=== PATIENT | male | born 1990 | race Hispanic/Latino ===

== ENCOUNTER 2019-03-17 14:25 | Inpatient (IN) | payer OTHER ==
[2019-03-17] MEDS ORDERED: AMIDATE IV ONE ×2 (14:45)
[2019-03-17] MEDS ORDERED: CALCIUM CHLORIDE IV ONE ×3 (14:45→15:05)
[2019-03-17] MEDS ORDERED: SUBLIMAZE IV ONE ×2 (14:45)
[2019-03-17] MEDS ORDERED: MAGNESIUM SULFATE 1 GM in NACL 0.9% 50 ML IV ONE (14:45)
[2019-03-17] MEDS ORDERED: SUBLIMAZE ONE (14:45)
[2019-03-17] MEDS ORDERED: ZOFRAN IV ONE (14:45)
[2019-03-17] MEDS ORDERED: NACL 0.9% 500 ML 500 ML IV ONE (14:57)
--- NOTE | 2019-03-17 14:58 | Emergency Department Report ---
ED General Adult HPI - General Chief complaint: Weakness Stated complaint: CHEST PAIN Time Seen by Provider: 03/17/19 14:55 Source: patient, police, EMS ( EMS documentation not available at time of chart dictation . Verbal report received from EMS), RN notes reviewed Mode of arrival: Stretcher Limitations: Physical Limitation - History of Present Illness Initial comments: Assessment is a 28-year-old gentleman who is not known to this provider jessica tran. The patient does not have a local primary care doctor. He does not have any chronic medical conditions that he is aware of. The patient is brought to the hospital by emergency medical services for undifferentiated wide-complex tachycardia. Patient states that he was in his usual state of health earlier on today, playing basketball, when he began to feel sweaty, lightheaded, and weak. Emergency medical services were contacted, and he was found to have a wide complex tachycardia. EMS gave 150 mg of amiodarone 2, adenosine 6 mg, 12 mg, and 600 mL of normal saline. Upon arrival to the emergency room, the patient is in a persistently wide complex tachycardia. He complains of weakness and chest pain, and also is found to be diaphoretic. Emergency cardioversion was recommended with moderate sedation. The patient indicates that he ate about 2 hours prior to arrival. He gave verbal consent for moderate sedation, given emergent nature of procedure. Risks, benefits, alternatives were discussed with the patient. Patient received 5 mg of etomidate, and additional 5 mg of etomidate, and then 50 g of fentanyl. He received synchronized cardioversion at 200 J, with prompt resolution of his wide-complex tachycardia, and prompt resolution of all of his symptoms. The patient is now in a sinus rhythm, and denies all complaints. He is smiling, and indicates that he feels much better. 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 He is currently in [facility], and indicates no recreational drug use. -: Sudden Location: chest Radiation: non-radiation Quality: aching Consistency: constant, now resolved Improves with: other (procedural sedation, and synchronize cardioversion) - Related Data Home Medications Medication Instructions Recorded Confirmed Last Taken No Known Home Medications [No 03/17/19 03/17/19 Unknown Reported Home Medications] Allergies Allergy/AdvReac Type Severity Reaction Status Date / Time No Known Allergies Allergy Verified 03/17/19 15:34 ED Review of Systems ROS: Stated complaint: CHEST PAIN Other details as noted in HPI Constitutional: diaphoresis, malaise Eyes: denies: eye discharge ENT: other (binocular blurry vision) Respiratory: shortness of breath. denies: wheezing Cardiovascular: chest pain, palpitations, syncope (near syncope) Gastrointestinal: nausea, vomiting Musculoskeletal: denies: back pain Skin: denies: lesions Neurological: weakness Psychiatric: anxiety ED Past Medical Hx - Medications Home Medications: Home Medications Medication Instructions Recorded Confirmed Last Taken Type No Known Home Medications [No 03/17/19 03/17/19 Unknown History Reported Home Medications] ED Physical Exam - General Limitations: Physical Limitation, Other (she initially diaphoretic) General appearance: alert, anxious, in distress - Head Head exam: Present: atraumatic, normocephalic - Eye Eye exam: Present: normal appearance, EOMI. Absent: nystagmus - ENT ENT exam: Present: normal exam, normal orophraynx, mucous membranes moist, normal external ear exam - Neck Neck exam: Present: normal inspection, full ROM. Absent: tenderness, meningismus - Respiratory Respiratory exam: Present: normal lung sounds bilaterally. Absent: respiratory distress - Cardiovascular Cardiovascular Exam: Present: tachycardia, other (initially, patient found to be tachycardic. However, after cardioversion, found to be normal sinus, S1, S2, regular rate and rhythm. No murmurs are appreciated.). Absent: diastolic murmur, rubs, gallop - GI/Abdominal GI/Abdominal exam: Present: soft. Absent: distended, tenderness, guarding, rebound, rigid - Rectal Rectal exam: Present: deferred - Extremities Exam Extremities exam: Present: normal inspection, full ROM, other (2+ pulses noted in the bilateral upper, lower extremities. There is no long bone tenderness. Musculoskeletal compartments are soft. The pelvis is stable.). Absent: pedal edema, joint swelling, calf tenderness - Back Exam Back exam: Present: normal inspection. Absent: tenderness, CVA tenderness (R), CVA tenderness (L), paraspinal tenderness, vertebral tenderness - Neurological Exam Neurological exam: Present: alert, oriented X3, other (there is no facial droop. The tongue is midline. Extraocular movements are intact bilaterally. Patient speaking in full complete sentences. Shoulder shrug is intact bilaterally. He aring is grossly intact bilaterally. Visual acuity intact to finger counting and color perception at a close distance. 5/5 strength 4 extremities. Sensation intact to light touch in 4 extremities.) - Psychiatric Psychiatric exam: Present: anxious - Skin Skin exam: Present: warm, dry, intact, normal color. Absent: rash ED Course Vital Signs 03/17/19 03/17/19 03/17/19 14:25 14:27 14:30 Temperature 98.2 F Pulse Rate 245 H 237 H Respiratory 20 19 16 Rate Blood Pressure 139/107 125/85 125/85 Blood Pressure [Left] O2 Sat by Pulse 98 100 96 Oximetry 03/17/19 03/17/19 03/17/19 14:40 14:50 15:00 Temperature Pulse Rate 221 H 77 74 Respiratory 22 19 11 L Rate Blood Pressure 125/85 125/85 176/93 Blood Pressure 176/93 [Left] O2 Sat by Pulse 97 98 96 Oximetry 03/17/19 03/17/19 03/17/19 15:10 15:20 15:29 Temperature Pulse Rate 77 76 Respiratory 23 0 L 16 Rate Blood Pressure 156/96 152/106 Blood Pressure 176/92 [Left] O2 Sat by Pulse 96 98 98 Oximetry 03/17/19 03/17/19 03/17/19 15:30 15:40 15:50 Temperature Pulse Rate 71 75 74 Respiratory 0 L 15 13 Rate Blood Pressure 169/92 164/85 182/95 Blood Pressure [Left] O2 Sat by Pulse 98 97 98 Oximetry 03/17/19 03/17/19 03/17/19 16:00 16:10 16:20 Temperature Pulse Rate 69 70 69 Respiratory 17 18 20 Rate Blood Pressure 182/95 177/93 171/83 Blood Pressure [Left] O2 Sat by Pulse 99 99 100 Oximetry 03/17/19 03/17/19 03/17/19 16:30 16:40 16:50 Temperature Pulse Rate 69 75 71 Respiratory 19 18 16 Rate Blood Pressure 171/105 171/83 158/75 Blood Pressure [Left] O2 Sat by Pulse 98 96 98 Oximetry 03/17/19 03/17/19 03/17/19 17:00 17:10 17:20 Temperature Pulse Rate 69 64 Respiratory 24 22 Rate Blood Pressure 158/88 158/88 216/165 Blood Pressure [Left] O2 Sat by Pulse 98 97 95 Oximetry 03/17/19 03/17/1919 17:30 17:40 17:50 Temperature Pulse Rate 67 61 66 Respiratory 18 20 16 Rate Blood Pressure 178/95 178/95 153/87 Blood Pressure [Left] O2 Sat by Pulse 96 96 96 Oximetry 03/17/19 03/17/19 18:00 18:10 Temperature Pulse Rate 64 64 Respiratory 13 17 Rate Blood Pressure 158/101 158/101 Blood Pressure [Left] O2 Sat by Pulse 96 96 Oximetry - Procedure Description Procedures done: Patient placed on diagnostic cardiac sonographer, and end-tidal capnography. Patient required emergency cardioversion for wide-complex tachycardia with diaphoresis and chest pain. Patient came verbal consent for emergency cardioversion. Risks, benefits and alternatives were discussed. Patient had already failed conservative measures with medical therapy. Patient medicated with etomidate, fentanyl, please see moderate sedation note for further details, received synchronized cardioversion at 200 J, and probably returns to a normal sinus rhythm. The patient endorsed complete resolution of his symptoms, and tolerated the procedure well. - Moderate Sedation Indications: other (moderate sedation for cardioversion) ASA Class: III Mallampati Airway Score: 2 Preparation: diagnostic cardiac sonographer applied, pulse oximeter, capnometry used, supplemental O2 applied Fentanyl: IV Fentanyl Dose: 50 IV Etomidate Dose (mgs): 10 (5 mg, 5 mg) Complications: none Interventions: oxygen applied, airway repositioned, assist by BVM Patient Tolerated Procedure: well Additional Comments: Patient reportedly consumed food 2 hours prior to arrival. Required emergency moderate sedation for cardioversion, for wide-complex tachycardia with concerning symptoms. He has provided oral consent. Risks, benefits, alternatives discussed with patient. Conversation witnessed by multiple nurses, including Rnee Ware ED Medical Decision Making - Lab Data Result diagrams: 03/17/19 Unknown 03/17/19 Unknown Vital Signs 03/17/19 03/17/19 03/17/19 14:25 14:50 15:29 Temperature 98.2 F Pulse Rate 245 H 76 76 Respiratory 20 18 16 Rate Blood Pressure 139/107 Blood Pressure 176/93 176/92 [Left] O2 Sat by Pulse 98 98 98 Oximetry Lab Results 03/17/19 03/17/19 03/17/19 Range/Units Unknown Unknown Unknown WBC 15.2 H (4.5-11.0) K/mm3 RBC 5.63 H (3.65-5.03) M/mm3 Hgb 16.7 H (11.8-15.2) gm/dl Hct 49.4 H (35.5-45.6) % MCV 88 (84-94) fl MCH 30 (28-32) pg MCHC 34 (32-34) % RDW 13.3 (13.2-15.2) % Plt Count 273 (140-440) K/mm3 PT 13.9 (12.2-14.9) Sec. INR 1.10 (0.87-1.13) APTT 26.3 (24.2-36.6) Sec. Sodium 140 (137-145) mmol/L Potassium 4.9 (3.6-5.0) mmol/L Chloride 100.9 (98-107) mmol/L Carbon Dioxide 20 L (22-30) mmol/L Anion Gap 24 mmol/L BUN 15 (9-20) mg/dL Creatinine 1.2 (0.8-1.5) mg/dL Estimated GFR > 60 ml/min BUN/Creatinine Ratio 13 % Glucose 126 H (75-100) mg/dL Calcium 10.1 (8.4-10.2) mg/dL Magnesium (1.7-2.3) mg/dL Total Bilirubin 0.60 (0.1-1.2) mg/dL AST 45 H (5-40) units/L ALT 59 H (7-56) units/L Alkaline Phosphatase 56 (35-129) units/L Total Creatine Kinase (55-170) units/L Total Protein 8.3 H (6.3-8.2) g/dL Albumin 5.0 (3.9-5) g/dL Albumin/Globulin Ratio 1.5 % TSH (0.270-4.200) mlU/mL Salicylates (2.8-20.0) mg/dL Acetaminophen (10.0-30.0) ug/mL Plasma/Serum Alcohol (0-0.07) % 03/17/19 03/17/19 03/17/19 Range/Units Unknown Unknown Unknown WBC (4.5-11.0) K/mm3 RBC (3.65-5.03) M/mm3 Hgb (11.8-15.2) gm/dl Hct (35.5-45.6) % MCV (84-94) fl MCH (28-32) pg MCHC (32-34) % RDW (13.2-15.2) % Plt Count (140-440) K/mm3 PT (12.2-14.9) Sec. INR (0.87-1.13) APTT (24.2-36.6) Sec. Sodium (137-145) mmol/L Potassium (3.6-5.0) mmol/L Chloride (98-107) mmol/L Carbon Dioxide (22-30) mmol/L Anion Gap mmol/L BUN (9-20) mg/dL Creatinine (0.8-1.5) mg/dL Estimated GFR ml/min BUN/Creatinine Ratio % Glucose (75-100) mg/dL Calcium (8.4-10.2) mg/dL Magnesium 2.10 (1.7-2.3) mg/dL Total Bilirubin (0.1-1.2) mg/dL AST (5-40) units/L ALT (7-56) units/L Alkaline Phosphatase (35-129) units/L Total Creatine Kinase 145 (55-170) units/L Total Protein (6.3-8.2) g/dL Albumin (3.9-5) g/dL Albumin/Globulin Ratio % TSH 2.550 (0.270-4.200) mlU/mL Salicylates < 0.3 L (2.8-20.0) mg/dL Acetaminophen (10.0-30.0) ug/mL Plasma/Serum Alcohol (0-0.07) % 03/17/19 03/17/19 Range/Units Unknown Unknown WBC (4.5-11.0) K/mm3 RBC (3.65-5.03) M/mm3 Hgb (11.8-15.2) gm/dl Hct (35.5-45.6) % MCV (84-94) fl MCH (28-32) pg MCHC (32-34) % RDW (13.2-15.2) % Plt Count (140-440) K/mm3 PT (12.2-14.9) Sec. INR (0.87-1.13) APTT (24.2-36.6) Sec. Sodium (137-145) mmol/L Potassium (3.6-5.0) mmol/L Chloride (98-107) mmol/L Carbon Dioxide (22-30) mmol/L Anion Gap mmol/L BUN (9-20) mg/dL Creatinine (0.8-1.5) mg/dL Estimated GFR ml/min BUN/Creatinine Ratio % Glucose (75-100) mg/dL Calcium (8.4-10.2) mg/dL Magnesium (1.7-2.3) mg/dL Total Bilirubin (0.1-1.2) mg/dL AST (5-40) units/L ALT (7-56) units/L Alkaline Phosphatase (35-129) units/L Total Creatine Kinase (55-170) units/L Total Protein (6.3-8.2) g/dL Albumin (3.9-5) g/dL Albumin/Globulin Ratio % TSH (0.270-4.200) mlU/mL Salicylates (2.8-20.0) mg/dL Acetaminophen < 5.0 L (10.0-30.0) ug/mL Plasma/Serum Alcohol < 0.01 (0-0.07) % - EKG Data -: EKG Interpreted by Id - EKG Data When compared to previous EKG there are: previous EKG unavailable 03/17/19 16:42 Initial EKG, timed at 14:29, shows wide complex tachycardia, likely ventricular tachycardia. There is no prior EKG available for comparison. Rate 237 bpm. Status post denies cardioversion, 1454, the EKG shows a sinus rhythm, 71 bpm, normal axis, QTC 387 ms, there is poor R-wave progression, there is motion artifact, there is no endorsement of chest pain, the EKG is not consistent with ST elevation myocardial infarction. - Radiology Data Radiology results: pending, report reviewed, image reviewed X-ray of the chest is negative for acute disease - Medical Decision Making Differential diagnosis, including but not limited to: Ventricular tachycardia, S VT with aberrancy, [id number]-[id number] syndrome, electrolyte derangement, thyroid derangement Assessment and plan: 28-year-old gentleman with wide-complex tachycardia, requiring cigarettes cardioversion, now normal sinus, and in no acute distress. The patient is at this time afebrile with reassuring vital signs, and does not appear to be in any acute distress. Urgent cardiology consultation was requested, discussed the case with Micheal Schafer, nurse practitioner of the cardiology team, who will see the patient shortly. Case presented to Hospital physician, Dr. Gaby Brantley, who has accepted the patient to his service. Discussed plan of care for admission with the patient verbalizes understanding, and who is amenable to this plan of care. Leukocytosis is likely a stress reaction. Transaminitis nonspecific, we'll defer to inpatient team. The patient is clinically sober at this time. We'll defer to cardiology team to recommend further inpatient therapy, especially regarding sarai blocking agents. Critical Care Time: Yes Critical care time in (mins) excluding proc time.: 65 Critical care attestation.: If time is entered above; I have spent that time in minutes in the direct care of this critically ill patient, excluding procedure time. ED Disposition Clinical Impression: Wide-complex tachycardia Disposition: DC-09 OP ADMIT IP TO THIS HOSP Is pt being admited?: Yes Condition: Critical
[2019-03-17] MEDS ORDERED: SODIUM CHLORIDE FLUSH SYRINGE 10 ML IV NR (15:00)
[2019-03-17] MEDS ORDERED: ZOFRAN ONE (15:05)
[2019-03-17 15:08] LABS: Hematocrit 49.4 % (35.5-45.6); Hemoglobin 16.7 gm/dl (11.8-15.2); Mean Corpuscular HGB Conc 34 % (32-34); Mean Corpuscular Volume 88 fl (84-94); Platelet Count 273 K/mm3 (140-440); Red Blood Count 5.63 M/mm3 (3.65-5.03); Red Cell Distribution Width 13.3 % (13.2-15.2)
[2019-03-17 15:19] LABS: INR 1.1 (0.87-1.13); Partial Thromboplastin Time 26.3 Sec. (24.2-36.6)
[2019-03-17 15:29] LABS: Alanine Aminotransferase 59 units/L (7-56); BUN/Creatinine Ratio 13; Blood Urea Nitrogen 15 mg/dL (9-20); Calcium 10.1 mg/dL (8.4-10.2); Hemolysis Index 31
--- NOTE | 2019-03-17 15:50 | XRay Report ---
CHEST 1 VIEW INDICATION: Chest pain. COMPARISON: None FINDINGS: Support devices: None. Heart: Within normal limits. Lungs/Pleura: No acute air space or interstitial disease. Additional findings: None. IMPRESSION: No acute findings. Signer Name: Jeronimo García Jr, MD Signed: 03/17/2019 3:34 PM Workstation Name: [id number]
[2019-03-17 17:47] LABS: Bilirubin,Urine NEG (Negative); Blood,Urine NEG (Negative); Color,Urine Yellow (Yellow); Hyaline Casts,Urine 1 /LPF; Protein,Urine <15 mg/dL mg/dL (Negative); Urobilinogen,Urine < 2.0 mg/dL (<2.0)
[2019-03-17 17:55] LABS: Amphetamine Screen,Urine PRESUMPTIVE NEGATIVE; Benzodiazepines Screen,Urine PRESUMPTIVE NEGATIVE; Cannabinoid Screen,Urine PRESUMPTIVE NEGATIVE; Cocaine Screen,Urine PRESUMPTIVE NEGATIVE; Methadone Screen,Urine PRESUMPTIVE NEGATIVE; Opiate Screen,Urine PRESUMPTIVE NEGATIVE
--- NOTE | 2019-03-17 18:09 | Consultation ---
History of Present Illness Consult date: 03/17/19 Consult reason: cardiac arrest History of present illness: The patient stated 28-year-old male who is currently incarcerated. He was brought to the emergency room for chest pain, palpitations and dizziness which started abruptly while he was playing basketball in the assisted yard. His ECG on contact with the medical service showed a wide complex tachycardia, rate of 240. The field, he was treated with intravenous amiodarone and reportedly adenosine, with no change in the rhythm. In the emergency room, he eventually required direct current cardioversion due to continued chest pain and diaphoresis today with persistent wide-complex tachycardia. Following cardioversion, the patient felt better, his ECG was a normal sinus rhythm with left ventricular hypertrophy and a nonspecific intraventricular conduction delay. Specifically, there was no evidence of [id number]. The patient is currently comfortable, had no chest pain, no shortness of breath, denies any prior cardiac history. He denies any history of syncope. He is unable to report a family history because he was adopted. Past History Past Medical History: No medical history Medications and Allergies Allergies Allergy/AdvReac Type Severity Reaction Status Date / Time No Known Allergies Allergy Verified 03/17/19 15:34 Home Medications Medication Instructions Recorded Confirmed Last Taken Type No Known Home Medications [No 03/17/19 03/17/19 Unknown History Reported Home Medications] Active Meds: Active Medications Sodium Chloride (Sodium Chloride Flush Syringe 10 Ml) 10 ml IV PRN NR Stop: 03/20/19 14:59 Last Admin: 03/17/19 14:45 Dose: 10 ml Documented by: Review of Systems Cardiovascular: chest pain, palpitations, rapid/irregular heart beat, lightheadedness, shortness of breath, no orthopnea, no edema, no syncope Physical Examination Vital Signs Temp Pulse Resp BP Pulse Ox 98.2 F 245 H 20 139/107 97 03/17/19 14:25 03/17/19 14:25 03/17/19 14:25 03/17/19 14:25 03/17/19 14:25 General appearance: no acute distress HEENT: Positive: PERRL Neck: Positive: neck supple Cardiac: Positive: Reg Rate and Rhythm Lungs: Positive: clear to auscultation Neuro: Positive: Grossly Intact Abdomen: Positive: Soft Male genitourinary: Positive: deferred Skin: Positive: Clear Extremities: Absent: edema Results 03/17/19 Unknown 03/17/19 Unknown Cardiac Enzymes 03/17/19 Range/Units Unknown AST 45 H (5-40) units/L Coagulation 03/17/19 Range/Units Unknown PT 13.9 (12.2-14.9) Sec. INR 1.10 (0.87-1.13) APTT 26.3 (24.2-36.6) Sec. CBC 03/17/19 Range/Units Unknown WBC 15.2 H (4.5-11.0) K/mm3 RBC 5.63 H (3.65-5.03) M/mm3 Hgb 16.7 H (11.8-15.2) gm/dl Hct 49.4 H (35.5-45.6) % Plt Count 273 (140-440) K/mm3 Comprehensive Metabolic Panel 03/17/19 Range/Units Unknown Sodium 140 (137-145) mmol/L Potassium 4.9 (3.6-5.0) mmol/L Chloride 100.9 (98-107) mmol/L Carbon Dioxide 20 L (22-30) mmol/L BUN 15 (9-20) mg/dL Creatinine 1.2 (0.8-1.5) mg/dL Glucose 126 H (75-100) mg/dL Calcium 10.1 (8.4-10.2) mg/dL AST 45 H (5-40) units/L ALT 59 H (7-56) units/L Alkaline Phosphatase 56 (35-129) units/L Total Protein 8.3 H (6.3-8.2) g/dL Albumin 5.0 (3.9-5) g/dL EKG interpretations - Telemetry EKG Rhythm: Sinus Rhythm Assessment and Plan - Patient Problems (1) Wide-complex tachycardia Current Visit: Yes Status: Acute Plan to address problem: 28-year-old man who presents with sustained ventricular tachycardia which started while he was exerting himself playing basketball. He was successfully cardioverted in the emergency room, using synchronized 200 J 1. End sinus rhythm, there is no evidence of [id number]. Electrolytes including potassium and magnesium are normal. We will get an echocardiogram for left ventricular function assessment, and assessment of left ventricular wall thickness. Further cardiac evaluation would depend on clinical course, patient will require a full electrophysiologic assessment and a likely cardiac defibrillator for seco ndary prevention.
[2019-03-17] MEDS: LOPRESSOR PO SCH (22:06)
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
[2019-03-18] MEDS: ASPIRIN PO SCH ×2 (08:48→10:45)
[2019-03-18] MEDS ORDERED: NACL 0.9% 500 ML 500 ML IV SCH (09:00)
[2019-03-18] MEDS ORDERED: HEPARIN/NS 5000 UNIT/500ML(CATH LAB) 1,000 ML IR ONE (10:36)
[2019-03-18] MEDS ORDERED: XYLOCAINE 2% INFILTRATI ONE (10:37)
[2019-03-18] MEDS ORDERED: SUBLIMAZE ONE (10:42)
[2019-03-18] MEDS ORDERED: VERSED ONE (10:42)
[2019-03-18] MEDS: ZESTRIL PO SCH ×2 (10:45→13:23)
[2019-03-18] MEDS: LOPRESSOR PO SCH (10:45)
[2019-03-18] MEDS ORDERED: ADRENALIN ONE (11:28)
[2019-03-18] MEDS ORDERED: XYLOCAINE CARDIAC IV ONE (11:28)
[2019-03-18] MEDS ORDERED: ATROPINE 0.1% (CARDIAC) ONE (11:28)
[2019-03-18] MEDS ORDERED: PHENYLEPHRINE/NS Syringe 1,000 MCG/10 ML IV ONE (11:28)
[2019-03-18] MEDS: CALAN ONE ×2 (11:31→11:41)
[2019-03-18] MEDS: NITROGLYCERIN SYRINGE 3 ML ONE ×2 (11:32→11:41)
[2019-03-18] MEDS: HEPARIN 10,000 UNITS/10 ML ONE ×2 (11:39→11:41)
[2019-03-18] MEDS ORDERED: AFLURIA QUAD 2019-2020 (3YR UP) IM ONE (12:00)
--- NOTE | 2019-03-18 12:11 | Event Note ---
Date: 03/18/19 Cardiac catheterization was completed via the right radial artery, no complications. We found angiographically normal coronary arteries, normal left ventricle is function, ejection fraction 55%. The patient is referred for electrophysiologic consultation and assessment for sustained ventricular tachycardia.
--- NOTE | 2019-03-18 12:31 | Cardiac Catherization Report ---
CARDIAC CATHETERIZATION REPORT REASON FOR PROCEDURE: The patient is a 28-year-old man who presented with sustained ventricular tachycardia during exercise. He was treated with a direct current cardioversion in the Emergency Room. A cardiac catheterization has been recommended for further assessment. PROCEDURES: 1. Left heart catheterization. 2. Selective left and right coronary angiography. 3. Left ventricle angiography. 4. Sedation time, start 11:39, end 11:52. The patient was prepped and draped in a sterile fashion after informed consent. Right radial cath site was prepped and draped after a negative Drew's test. The right radial artery was entered using Seldinger technique followed by placement of a 6-Uzbek hydrophilic sheath. Routine radial cocktail was administered via the sheath. Left coronary angiography was performed using a #3.5 left Darrell catheter. A #4 right Darrell was used for right coronary angiography. Pigtail catheter was used for left ventricle angiography. The catheters were removed, sheath removed and hemostasis achieved using a TR band. The patient was returned to the postprocedure unit in stable condition. There were no complications. FINDINGS: HEMODYNAMICS: Left ventricular end-diastolic pressure was 26, following coronary angiography. Ascending aortic pressure was 138/80. There was no significant pressure gradient on pullback across the aortic valve. CORONARY ANGIOGRAPHY: The left main coronary artery was angiographically normal. The left anterior descending artery and its diagonal branches were angiographically normal. The circumflex artery and its obtuse marginal branches were angiographically normal. The right coronary artery was dominant and similarly angiographically normal. Left ventricular systolic function was within normal limits with estimated ejection fraction 55%. CONCLUSION: 1. Angiographically normal coronary arteries. 2. Normal left ventricular systolic function, ejection fraction 55%. RECOMMENDATION: The patient will be recommended for electrophysiologic evaluation of sustained exercise-induced ventricular tachycardia. JOB# [id number] CA/NTS
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
[2019-03-18 14:30] VITALS: BP 153/69
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
[2019-03-19] MEDS ORDERED: AFLURIA QUAD 2019-2020 (3YR UP) IM ONE (12:00)
== END 2019-03-18 17:56 | disposition short-term general hospital (02) | DRG 287 ==
LOC: ED 14:25 → EEVIPCON 16:44 → 4A 16:44
PROVIDERS: ADMIT Internal Medicine; ATTEND Internal Medicine
PROC: 5A2204Z Restoration of Cardiac Rhythm, Single (ICD-10-PCS; 2019-03-17)
PROC: 4A023N7 Measurement of Cardiac Sampling and Pressure, Left Heart, Percutaneous Approach (ICD-10-PCS; principal; 2019-03-18)
PROC: B2111ZZ Fluoroscopy of Multiple Coronary Arteries using Low Osmolar Contrast (ICD-10-PCS; 2019-03-18)
PROC: B2151ZZ Fluoroscopy of Left Heart using Low Osmolar Contrast (ICD-10-PCS; 2019-03-18)
DX: I47.2 Ventricular tachycardia (principal); I48.92 Unspecified atrial flutter; D72.829 Elevated white blood cell count, unspecified; I10 Essential (primary) hypertension; F14.90 Cocaine use, unspecified, uncomplicated; F15.90 Other stimulant use, unspecified, uncomplicated; F41.9 Anxiety disorder, unspecified; Z82.49 Family history of ischemic heart disease and other diseases of the circulatory system; Z87.891 Personal history of nicotine dependence
CPT/HCPCS: 36415; 71045; 80053; 80307; 80320; 81001; 82550; 83735; 84443; 85027; 85610; 85730; 90686; 93005; 93010; 93306; 93458; 96374; G0378; C1894; G0480; J0171; J0461; J1644; J2001; J2250; J2370; J2405; J3010; J3475; J7040; Q9967